=== PATIENT | male | born 1955 | race African-American/Black ===

== ENCOUNTER 2023-12-09 11:06 | Inpatient (IN) | payer BC, OTHER ==
[2023-12-09] VITALS (28 sets, daily range): BP systolic 102–136; BP diastolic 73–94; PULSE 56–73; RESP 13–40; TEMP 36.22512–36.8072; O2SAT 95–99
[~2023-12-09] VITALS: Ht 330.2 cm; Wt 75.3 kg
[2023-12-09] MEDS: TENECTEPLASE 50MG/VIAL IV ONE (11:49)
[2023-12-09] MEDS ORDERED: *TENECTEPLASE FOR AIS XX SCH (11:50)
[2023-12-09 11:56] LABS: CLARITY URINE CLEAR (CLEAR); COLOR URINE YELLOW (YELLOW); GLUCOSE URINE NEGATIVE (NEGATIVE); KETONES URINE NEGATIVE (NEGATIVE); LEUKOCYTE ESTERASE URINE 1+ (NEGATIVE); NITRITE URINE POSITIVE (NEGATIVE); OCCULT BLOOD URINE NEGATIVE (NEGATIVE); PROTEIN URINE NEGATIVE (NEGATIVE); SPECIFIC GRAVITY URINE 1.029 (1.005-1.030); UROBILINOGEN URINE 0.2 E.U./dL (0.2-1.0)
[2023-12-09 11:59] LABS: CHLORIDE 104 mEq/L (98-107); POTASSIUM 4.4 mEq/L (3.5-5.1); SODIUM 135 mEq/L (136-145)
[2023-12-09 12:00] LABS: CARBON DIOXIDE 27 mEq/L (21-32)
[2023-12-09 12:01] LABS: CALCIUM 9.3 mg/dL (8.7-10.4)
[2023-12-09 12:03] LABS: PROTHROMBIN TIME 10.8 sec (9.6-11.0)
[2023-12-09] MEDS: IOHEXOL-350 100 ML BOTTLE ONE (12:04)
[2023-12-09 12:05] LABS: CREATININE 1.1 mg/dL (0.6-1.3)
[2023-12-09 12:06] LABS: GLUCOSE 98 mg/dL (70-105); UREA NITROGEN BLOOD 15 mg/dL (9-23)
[2023-12-09 12:11] LABS: BASOPHILS % 0.6 % (0.0-2.0); EOSINOPHILS % 0.8 % (0.0-5.0); HEMOGLOBIN. 15.3 g/dL (14.0-18.0); LYMPHOCYTES % 37.7 % (20.0-50.0); MEAN CORPUSCULAR HEMOGLOBIN 30.5 pg (28.0-32.0); MEAN CORPUSCULAR HGB CONC 31.8 g/dL (31.0-37.0); MEAN CORPUSCULAR VOLUME 95.8 fL (80.0-94.0); MEAN PLATELET VOLUME 7.4 fl (7.4-10.4); MONOCYTES % 9.6 % (2.0-8.0); NEUTROPHILS % 51.3 % (40.0-76.0); PLATELET 235 x1000/uL (130-400); RED BLOOD CELL COUNT 5.01 mill/uL (4.7-6.1); RED CELL DISTRIBUTION WIDTH 13.3 % (11.6-14.6); WHITE BLOOD COUNT 5.7 x1000/uL (4.5-11.0)
[2023-12-09 12:58] LABS: *AMPHETAMINES SCREEN URINE NEGATIVE (NEGATIVE); *BARBITURATES SCREEN URINE NEGATIVE (NEGATIVE); *BENZODIAZEPINES SCREEN URINE NEGATIVE (NEGATIVE); *COCAINE SCREEN URINE NEGATIVE (NEGATIVE); CANNABINOID URINE SCREEN PRESUMPTIVE POSITIVE (NEGATIVE); METHADONE URINE SCREEN NEGATIVE (NEGATIVE); OPIATES URINE SCREEN NEGATIVE (NEGATIVE); PHENCYCLIDINE URINE SCREEN NEGATIVE (NEGATIVE)
[2023-12-09 13:06] LABS: SQUAMOUS EPITHELIAL CELL URINE FEW /lpf (RARE/1+)
[2023-12-09 13:07] LABS: BACTERIA URINE 4+; RBC URINE 0-2 /hpf (0-2)
[2023-12-09 13:07] LABS: TROPONIN I HIGH SENSITIVITY 6 ng/L (3.0-53)
[2023-12-09 13:26] LABS: ETHANOL BLOOD < 10 mg/dL (<10)
[2023-12-09] MEDS ORDERED: HYDROCODONE/ACETAMINOPHEN 5/325MG TABLET PO PRN (13:45)
[2023-12-09] MEDS ORDERED: KETOROLAC 10MG TABLET PO PRN (13:45)
[2023-12-09] MEDS ORDERED: DOCUSATE SODIUM 100MG CAPSULE PO PRN (13:45)
[2023-12-09] MEDS ORDERED: IPRATROPIUM/ALBUTEROL 0.5-3(2.5)MG/3ML NEB HHN PRN (13:45)
[2023-12-09] MEDS ORDERED: MAGNESIUM/ALUMINUM HYDROXIDE/SIMETHICONE 30ML UDC PO PRN (13:45)
[2023-12-09] MEDS ORDERED: ONDANSETRON HCL 4MG/2ML INJ IV PRN (13:45)
[2023-12-09] MEDS ORDERED: ACETAMINOPHEN 325MG TABLET PO PRN ×2 (13:45)
[2023-12-09] MEDS ORDERED: GUAIFENESIN 200MG/10ML SUGAR FREE UDC PO PRN (13:45)
[2023-12-09] MEDS ORDERED: NALOXONE HCL 0.4MG/ML VIAL IV PRN (14:30)
[2023-12-09] MEDS: CEFTRIAXONE 1GM/50ML 50 ML IV SCH (15:06)
[2023-12-09] MEDS: ATORVASTATIN CALCIUM 40MG TABLET PO SCH (20:43)
[2023-12-10] VITALS (101 sets, daily range): BP systolic 83–146; BP diastolic 59–126; PULSE 48–91; RESP 8–37; TEMP 36.22512–37.16964; O2SAT 90–100
[2023-12-10 05:47] LABS: CARBON DIOXIDE 27 mEq/L (21-32); CHLORIDE 105 mEq/L (98-107); POTASSIUM 3.8 mEq/L (3.5-5.1); SODIUM 138 mEq/L (136-145)
[2023-12-10 05:48] LABS: CALCIUM 9.3 mg/dL (8.7-10.4)
[2023-12-10 05:52] LABS: GLUCOSE 90 mg/dL (70-105)
[2023-12-10 05:53] LABS: TRIGLYCERIDE 104 mg/dL (0-150); UREA NITROGEN BLOOD 14 mg/dL (9-23)
[2023-12-10 05:54] LABS: ALANINE AMINOTRANSFERASE 10 IU/L (10-49); ALBUMIN 4.2 g/dL (3.2-4.8); ASPARTATE AMINOTRANSFERASE 16 IU/L (<34); LDL CHOLESTEROL 119 mg/dL (5-100)
[2023-12-10 05:55] LABS: BILIRUBIN TOTAL 1.4 mg/dL (0.1-1.0); CHOLESTEROL 170 mg/dL (<200); HDL CHOLESTEROL 48 mg/dL (>55); PHOSPHORUS 3.3 mg/dL (2.5-4.9); PROTEIN TOTAL 6.4 g/dL (6.0-8.3)
[2023-12-10 05:57] LABS: T4 FREE 1.32 ng/dL (0.89-1.76); THYROID STIMULATING HORMONE 1.57 uIU/mL (0.55-4.78)
[2023-12-10 06:16] LABS: HEPATITIS B SURFACE ANTIGEN NEGATIVE (Negative)
[2023-12-10 06:37] LABS: HEPATITIS C AB NON REACTIVE (Neg) (Negative)
[2023-12-10 06:47] LABS: BASOPHILS % 0.4 % (0.0-2.0); EOSINOPHILS % 0.9 % (0.0-5.0); HEMATOCRIT. 47.1 % (42.0-52.0); HEMOGLOBIN. 15.2 g/dL (14.0-18.0); LYMPHOCYTES % 34.5 % (20.0-50.0); MEAN CORPUSCULAR HEMOGLOBIN 30.4 pg (28.0-32.0); MEAN CORPUSCULAR HGB CONC 32.2 g/dL (31.0-37.0); MEAN CORPUSCULAR VOLUME 94.3 fL (80.0-94.0); MEAN PLATELET VOLUME 7.7 fl (7.4-10.4); MONOCYTES % 9.8 % (2.0-8.0); NEUTROPHILS % 54.4 % (40.0-76.0); PLATELET 237 x1000/uL (130-400); WHITE BLOOD COUNT 6.1 x1000/uL (4.5-11.0)
[2023-12-10] MEDS ORDERED: KETOROLAC 15MG/ML VIAL IM PRN (14:00)
[2023-12-10] MEDS: CEFTRIAXONE 1GM/50ML 50 ML IV SCH (14:57)
[2023-12-11 04:00] VITALS: BP 119/78; PULSE 79; RESP 18; TEMP 37.00296; O2SAT 99
[2023-12-11 07:15] LABS: CALCIUM 9.6 mg/dL (8.7-10.4); CHLORIDE 105 mEq/L (98-107); POTASSIUM 4.1 mEq/L (3.5-5.1); SODIUM 136 mEq/L (136-145)
[2023-12-11 07:16] LABS: CARBON DIOXIDE 22 mEq/L (21-32)
[2023-12-11 07:21] LABS: GLUCOSE 91 mg/dL (70-105); UREA NITROGEN BLOOD 10 mg/dL (9-23)
[2023-12-11 07:23] LABS: PHOSPHORUS 3.2 mg/dL (2.5-4.9)
[2023-12-11 07:57] LABS: HEMATOCRIT 48.6 % (42.0-52.0); HEMOGLOBIN 15.3 g/dL (14.0-18.0); MEAN CORPUSCULAR HEMOGLOBIN 30.3 pg (28.0-32.0); MEAN CORPUSCULAR HGB CONC 31.5 g/dL (31.0-37.0); MEAN CORPUSCULAR VOLUME 96.1 fL (80.0-94.0); PLATELET 216 x1000/uL (130-400); RED BLOOD CELL COUNT 5.06 mill/uL (4.7-6.1); RED CELL DISTRIBUTION WIDTH 13.2 % (11.6-14.6); WHITE BLOOD COUNT 5.5 x1000/uL (4.5-11.0)
[2023-12-11 08:00] VITALS: BP 118/81; PULSE 50; PULSE 75; RESP 18; TEMP 36.78072; O2SAT 98
[2023-12-11] MEDS: CLOPIDOGREL 75MG TABLET PO SCH (09:16)
[2023-12-11] MEDS: ASPIRIN 81MG TABLET PO SCH (09:16)
[2023-12-11 12:00] VITALS: BP 131/89; PULSE 52; RESP 17; TEMP 36.55848; O2SAT 99
[2023-12-11 15:09] VITALS: BP 131/89; PULSE 52; TEMP 98.2; O2SAT 98
[2023-12-11 16:00] VITALS: BP 125/82; PULSE 58; RESP 18; TEMP 36.83628; O2SAT 98
== END 2023-12-11 16:20 | disposition home or self-care (01) | DRG 62 ==
LOC: ER 11:40 → MICUSO 12:42 → EDBEDREQ 12:51 → EDBEDREQSVC 12:51 → EDBEDREQTM 12:51 → 8WST 12-10 22:23
PROVIDERS: ADMIT Hospitalist; ATTEND Hospitalist
DX: I63.9 Cerebral infarction, unspecified (principal); E87.1 Hypo-osmolality and hyponatremia; N39.0 Urinary tract infection, site not specified; E11.9 Type 2 diabetes mellitus without complications; E78.5 Hyperlipidemia, unspecified; I10 Essential (primary) hypertension; R00.1 Bradycardia, unspecified; N40.0 Benign prostatic hyperplasia without lower urinary tract symptoms; F12.90 Cannabis use, unspecified, uncomplicated; R29.702 NIHSS score 2; D75.89 Other specified diseases of blood and blood-forming organs; M47.812 Spondylosis without myelopathy or radiculopathy, cervical region; Z87.891 Personal history of nicotine dependence
CPT/HCPCS: 36415; 70496; 70498; 70551; 71045; 80048; 80053; 80061; 80305; 80320; 81003; 83036; 83735; 84100; 84439; 84443; 84484; 85025; 85027; 86705; 87340; 93005; 93306; 93970; 99291; J0696; J3101; Q9967; G0480